=== PATIENT | male | born 1960 | race Hispanic/Latino ===

== ENCOUNTER 2018-05-27 08:07 | Day surgery (SDC) | payer OTHER ==
[2018-05-27] MEDS ORDERED: Lactated Ringer's 500 ML IV ONE (08:27)
[2018-05-27 08:41] VITALS: BMI 30.1
[2018-05-27 08:43] VITALS: O2SAT 100
[2018-05-27] MEDS ORDERED: Propofol 10 mg/ml Inj (20 ML) ONE (08:52)
[2018-05-27 09:12] VITALS: TEMP 97.3
[2018-05-27 09:31] VITALS: BP 139/71; PULSE 64; RESP 16
== END 2018-05-27 13:50 | disposition home or self-care (01) ==
LOC: H.ENDO 08:07
PROVIDERS: ATTEND Internal Medicine Gastroenterology
DX: Z12.11 Encounter for screening for malignant neoplasm of colon (principal); I25.10 Atherosclerotic heart disease of native coronary artery without angina pectoris; E78.5 Hyperlipidemia, unspecified; I10 Essential (primary) hypertension; K64.1 Second degree hemorrhoids; K63.3 Ulcer of intestine; K57.30 Diverticulosis of large intestine without perforation or abscess without bleeding
CPT/HCPCS: 45380; 88305; J2001; J2704; J7120